=== PATIENT | male | born 1985 | race Two or more races ===

== ENCOUNTER 2018-03-09 05:34 | Emergency (ER) | payer OTHER ==
[~2018-03-09] VITALS: Ht 172.7 cm; Wt 77.1 kg
--- NOTE | 2018-03-09 06:00 | NUR ---
BBRA 40 FROM HOME; [employer] CALLED EMS FOR AGGITAITED PT. BG 116. 5 MG OF VERSED GIVEN IN FIELD BY EMS. PT IS AAOX3. RESP EVEN AND UNLABORED. VSS. SKIN WNL. PT NOTED TO BE AGITATED AND CURSING AT STAFF AND POLICE OFFICERS. PT IS IN CUSTODY. POLICE OFFICERS BEDSIDE. AWAITING MD FOR EVAL.
[2018-03-09] MEDS ORDERED: OLANZAPINE 10 MG VIAL IM ONE ×2 (06:50→07:00)
[2018-03-09] MEDS ORDERED: MIDAZOLAM 50 MG/10 ML VIAL ONE (06:57)
[2018-03-09] MEDS ORDERED: LORAZEPAM INJ 2 MG/ML VIAL IM ONE (07:00)
[2018-03-09] MEDS ORDERED: MIDAZOLAM HCL 2 MG/2ML VIAL IM ONE (07:00)
--- NOTE | 2018-03-09 07:38 | NUR ---
REPORT GIVEN TO MG MARES FOR CHERELLE.
--- NOTE | 2018-03-09 08:30 | NUR ---
PT ASLEEP AROUSABLE TO CALL OF NAME GOES BACK TO SLEEP VSS NOTIFIED MD
--- NOTE | 2018-03-09 09:44 | NUR ---
Patient discharged to home in stable condition. Written and verbal after care instructions given. Patient verbalizes understanding of instruction. OK TO BOOK
--- NOTE | 2018-03-09 09:44 | NUR ---
Note undone in EDM - 03/09/18 at 0944 by DLELIZABETHON IV removed. Catheter intact and site benign. Pressure and 4x4 applied to site. No bleeding noted.
[2018-03-09 09:45] VITALS: BP 120/83
== END 2018-03-09 09:49 ==
LOC: ER 05:37
DX: R45.1 Restlessness and agitation (principal); F12.10 Cannabis abuse, uncomplicated; F17.200 Nicotine dependence, unspecified, uncomplicated; Z60.2 Problems related to living alone
CPT/HCPCS: 96372 ×2; 99291; A4606; J2250; J3490; Z7610